=== PATIENT | female | born 1950 | race Caucasian/White ===

== ENCOUNTER → 2018-01-10 | Outpatient (CLI) | payer MEDICARE, OTHER ==
[~2018-01-10] MED LIST: ASP81 PO; GIC; HYDR-4309 PO; LEVO-85 PO; LIS10 PO; LOR5 PO; OMEP10CA40 PO; P-EP1CAP10 PO; PER PO; PRED-1 PO; PRO25 PO; WAR1 PO; WARF3TAB36 PO
--- NOTE | 2018-01-11 10:16 | RADIOLOGY IMAGING REPORT ---
FACILITY: [facility] PATIENT NAME: CHANDNI JAFFE : [id number] MR: [id number] V: [id number] EXAM DATE: ORDERING PHYSICIAN: JORI CAMARENA TECHNOLOGIST: Josee Mukherjee PROCEDURE:BILATERAL DIGITAL SCREENING MAMMOGRAM WITH CAD ASSISTED INTERPRETATION & 3D TOMOSYNTHESIS COMPARISON:Prior mammograms dated 10/28/15, 10/03/13, 02/14/11 INDICATIONS:screening FINDINGS: There is predominant fatty replacement throughout the breasts. The parenchymal pattern has remained stable allowing for difference in mammographic technique & patient positioning. There is no evidence of malignant appearing mass, malignant appearing calcification or other secondary sign of malignancy in either breast. DIAGNOSTIC CATEGORY 1--NEGATIVE. RECOMMENDATIONS: ROUTINE MAMMOGRAM AND CLINICAL EVALUATION. IMPRESSION: BIRADS 1: Negative. No significant abnormality is seen. Dictated by: Vero Griffin M.D. on 01/10/2018 at 16:17 Transcribed by: GUERRERO on 01/11/2018 at 8:29 Approved by: Vero Griffin M.D. on 01/11/2018 at 10:15 [facility]
== END ==
LOC: MAMO 00:25
PROVIDERS: ATTEND Family Medicine
DX: Z12.31 Encounter for screening mammogram for malignant neoplasm of breast (principal)
CPT/HCPCS: 77063; 77067